=== PATIENT | male | born 1980 | race African-American/Black ===

== ENCOUNTER 2024-01-28 20:47 | Emergency (ER) | payer MEDICAID, SELFPAY ==
--- NOTE | 2024-01-28 | ECG_ITS ---
Test Reason : HYPERTENSION Blood Pressure : / mmHG Vent. Rate : 079 BPM Atrial Rate : 079 BPM P-R Int : 150 ms QRS Dur : 108 ms QT Int : 398 ms P-R-T Axes : 050 039 070 degrees QTc Int : 456 ms Normal sinus rhythm Nonspecific T wave abnormality Abnormal ECG No previous ECGs available Referred By: Charley Gamez Electronically Signed By:DANIELA CORTES MD
[2024-01-28 20:56] VITALS: BP 160/98; PULSE 72; O2SAT 98
[2024-01-28 20:58] VITALS: BMI 42.9
[2024-01-28 21:07] VITALS: BP 118/59; PULSE 89; RESP 18; TEMP 36.8; O2SAT 98
[2024-01-28 21:11] LABS: MANUAL DIFF FLAG NO
[2024-01-28 21:12] LABS: Basophils Absolute Auto 0.1 X10*3/uL (0.0-0.2); Basophils Percent Auto 0.6 % (0-2); Eosinophils Percent Auto 0.2 % (0-4); Hematocrit 45.4 % (42.0-52.0); Hemoglobin 15.7 g/dl (14.0-18.0); Imm Gran Abs Auto 0.02 X10*3/uL (0.00-0.03); Imm Gran Pct Auto 0.2 % (0.0-0.4); Lymphocytes Absolute Auto 3.4 X10*3/uL (1.2-4.9); Mean Corpuscular HGB Conc 34.6 g/dl (31.0-36.0); Mean Corpuscular Hemoglobin 28.3 pg (27.0-33.0); Mean Corpuscular Volume 81.9 fL (80.0-98.0); Mean Platelet Volume 9.8 fL (9.4-12.4); Monocytes Absolute Auto 0.4 X10*3/uL (0.1-1.2); Monocytes Percent Auto 4.8 % (2-11); Neutrophils Absolute Auto 4.6 x10*3/uL (2.0-8.3); Neutrophils Percent Auto 54.2 % (45-73); Platelet Count 276 X10*3/uL (160-400); Red Blood Count 5.54 X10*6/uL (4.60-5.80); Red Cell Distribution Width 12.3 % (11.0-16.0); White Blood Count 8.5 X10*3/uL (4.8-10.8)
[2024-01-28 21:22] LABS: Glucose, Whole Blood 575 mg/dL (60-115)
--- NOTE | 2024-01-28 21:24 | ED.PSYCH ---
HPI - Psych General Chief Complaint: Psychiatric Symptoms Stated Complaint: SI, high blood sugar Time Seen by Provider: 01/28/24 21:04 Source: patient and EMS Mode of arrival: EMS Limitations: no limitations History of Present Illness ED Provider: Dr. Charley Gamez HPI Narrative: Patient comes to the emergency room by ambulance. Earlier today, patient was feeling suicidal, states that he wanted to walk into traffic. Patient was accompanied by another person who was also going to follow him and walk into oncoming traffic. EMS noted that the patient's glucose is elevated. According to the patient, for several months almost 6 now, he has not taking any of his psych medications. Patient states that he is originally from the [facility], has been in [place] for almost 2 years, states that he does not have good follow-up with his providers. Has an appointment pending in February of this year. Patient states that he is supposed to be taking Jardiance, metformin and insulin glargine, but has been out for Several weeks. Patient denies any chest pain, shortness of breath, no headache or blurry vision. Patient complaining of feeling very thirsty and drinking a lot of good. Related Data Home Medications ?Medication ?Instructions ?Recorded ?Confirmed lisinopril 20 mg tablet 20 mg PO DAILY 01/28/24 01/28/24 metformin 1,000 mg tablet 1,000 mg PO BID 01/28/24 01/28/24 Allergies Allergy/AdvReac Type Severity Reaction Status Date / Time No Known Allergies Allergy Verified 01/28/24 21:01 Review of Systems Review of Systems: Constitutional : No Weight loss, No Fever, No Chills, No Night Sweats, No Fatigue, No Malaise ENT/Mouth : No Hearing loss, No Ear Pain, No Nasal Congestion, No Sinus Pain, No Hoarseness, No sore throat, No Rhinorrhea, No Swallowing Difficulty Eyes: No Eye Pain, No Swelling, No Redness, No Foreign Body, No Discharge, No Vision Changes Cardiovascular : No Chest Pain, No SOB, No Dyspnea on Exertion, No Orthopnea, No Edema, No Palpitations Respiratory : No Cough, No Sputum, No Wheezing, No Smoke Exposure, No Dyspnea Gastrointestinal : No Nausea, No Vomiting, No Diarrhea, No Constipation, No abdominal Pain, No Hematochezia, No Melena Genitourinary : no irregular bleeding, No Dysuria, No Urinary Frequency, No Hematuria, No Urinary Incontinence, No Urgency, No Flank Pain, No Urinary Flow Changes, No Hesitancy Musculoskeletal : No joint pain, No Myalgias, No Joint Swelling Skin : No Skin Lesions, No rash Neuro : No Weakness, No Numbness, No Paresthesias, No Loss of Consciousness, No Dizziness, No Headache Psych : No Anxiety/Panic, Complaining of depression, was considering walking into oncoming traffic Heme/Lymph: No Bruising, No Bleeding,No Lymphadenopathy Endocrine : playing of hyperglycemia, polyuria and polydipsia [facility] Past Medical History Medical History (Updated 01/28/24 @ 21:31 by Charley Gamez MD) Type 2 diabetes mellitus Social History Social History Smoked in Last 30 Days: Yes Use of substances other than those prescribed or required for medical reasons: Yes Substance Use Type: Marijuana Advance Directives: No Advance Directives Information Provided: Yes Do you have a plan to hurt others: No Plan Physical Exam Vital Signs: Vital Signs: Last Vital Signs Temp 98.2 F 01/28/24 21:07 Pulse 89 01/28/24 21:07 Resp 18 01/28/24 21:07 BP 118/59 L 01/28/24 21:07 Pulse Ox 98 01/28/24 21:07 O2 Del Method Room Air 01/28/24 21:07 BMI result Body Mass Index 42.9 Const: Other: Appearance: Alert. Oriented X3. No acute distress. Eyes: Pupils equal, round and reactive to light. ENT: Pharynx normal. dry oral mucosa Neck: Normal inspection. Neck supple. No lymph nodes noted. No crepitus CVS: Normal heart rate and rhythm. Pulses normal. Normal S1 and S2 Respiratory: No respiratory distress. Breath sounds normal. No Wheezing. No rales Abdomen: Soft and nontender. No rigidity. No distention. Skin: Skin warm and dry. Normal skin color. Normal skin turgor. Extremities: No lower extremity edema. No Lacerations. No Rash Neuro: Oriented X 3. No motor deficit. No sensory deficit. Moving all extremities. No slurred speech. CN 2 through 12 grossly intact Psych: calm, cooperative, normal affect Course Course Course Narrative: patient receiving IV fluids, insulin, we will recheck glucose all labs pending patient is on a Section 12 once medically clear, patient to be seen by the care team. Medications Administered Generic Name Dose Route Start Last Admin Trade Name Bonita PRN Reason Stop Dose Admin Sodium Chloride 2,000 mls @ 999 mls/hr 01/28/24 21:24 01/28/24 21:31 Ns IVCONT 01/28/24 23:24 999 mls/hr .Q2H1M ONE Administration Discontinued Medications Generic Name Dose Route Start Last Admin Trade Name Bonita PRN Reason Stop Dose Admin Insulin Human Regular 10 unit 01/28/24 21:24 01/28/24 21:32 Insulin Regular, Human 100 Unit/Ml 10 Ml Vial IVPUSH 01/28/24 21:25 10 unit ONCE ONE Administration Medical Decision Making Medical Decision Making [facility] Narrative: My interpretation of labs: Normal hematology, normal venous gases, no acute abnormality in chemistry other than the elevated glucose of 538. Anion gap closed, read hydroxybutyrate within normal limits. Normal LFTs. - After 2 L of normal saline and 10 units of insulin, patient's glucose 299. Urinalysis negative for UTI, U tox positive for THC - patient is on a Section 12 - care team consult pending Differential Diagnosis Differential Diagnoses: The differential diagnosis associated with the presentation includes ( Anxiety, depression, polysubstance abuse, diabetes, DKA) Admission/Observation Consideration of admission/observation: Escalation of care including admission/observation considered ( given patient's presentation observation to the medical floor /admission has been considered. Patient is on a Section 12 waiting to be seen by the care team.) Lab Data [facility] Lab Attestation statement: I reviewed the patient's lab results. 01/28/24 21:08 01/28/24 21:08 Labs: Lab Results 01/28/24 01/28/24 01/28/24 Range/Units 21:08 21:11 21:20 WBC 8.5 (4.8-10.8) X10*3/uL RBC 5.54 (4.60-5.80) X10*6/uL Hgb 15.7 (14.0-18.0) g/dl Hct 45.4 (42.0-52.0) % MCV 81.9 (80.0-98.0) fL MCH 28.3 (27.0-33.0) pg MCHC 34.6 (31.0-36.0) g/dl RDW 12.3 (11.0-16.0) % Plt Count 276 (160-400) X10*3/uL MPV 9.8 (9.4-12.4) fL Immature Gran % (Auto) 0.2 (0.0-0.4) % Neut % (Auto) 54.2 (45-73) % Lymph % (Auto) 40.0 (20-40) % [place] % (Auto) 4.8 (2-11) % Eos % (Auto) 0.2 (0-4) % Baso % (Auto) 0.6 (0-2) % Lymph # (Auto) 3.4 (1.2-4.9) X10*3/uL [place] # (Auto) 0.4 (0.1-1.2) X10*3/uL Eos # (Auto) 0.0 (0.0-0.4) X10*3/uL Baso # (Auto) 0.1 (0.0-0.2) X10*3/uL Abs Immat Gran (auto) 0.02 (0.00-0.03) X10*3/uL Absolute Neuts (auto) 4.6 (2.0-8.3) x10*3/uL Absolute Nucleated RBC 0.000 (0.0-0.012) X10*3/uL Nucleated RBC % (auto) 0.0 (0.0-0.2) /100WBC VBG pH (7.32-7.43) VBG pCO2 mmHg VBG pO2 mmHg VBG HCO3 (22-26) mmol/L VBG O2 Saturation % VBG Base Excess mmol/L Sodium 134 L (135-145) mmol/L Potassium 4.1 (3.3-5.1) mmol/L Chloride 99 (96-108) mmol/L Carbon Dioxide 26 (22-29) mmol/L Anion Gap 13 (12-20) BUN 14 (9-16) mg/dL Creatinine 0.87 (0.5-1.4) mg/dL Estim Creat Clear Calc 142.8 Estimated GFR > 60 POC Glucose 575 H* (60-115) mg/dL Random Glucose 538 H* (60-115) mg/dL Calcium 9.8 (8.4-10.2) mg/dL Total Bilirubin 0.5 (0.0-1.0) mg/dL AST 24 (5-37) U/L ALT 25 (0-40) U/L Alkaline Phosphatase 195 H (39-117) U/L Total Protein 8.0 (6.5-8.0) g/dL Albumin 4.1 (3.5-5.0) g/dL Beta-Hydroxybutyrate (0.02-0.27) mmol/L Urine Color Urine Appearance Urine pH (5.0-9.0) Ur Specific [place] (1.005-1.025) Urine Protein (Neg-Trace) mg/dL Urine Glucose (UA) (Negative) mg/dL Urine Ketones (Negative) mg/dL Urine Blood (Negative) Urine Nitrite (Negative) Ur Leukocyte Esterase (Negative) Urine RBC (0-2) /HPF Urine WBC (0-5) /HPF Ur Squamous Epith Cells (0-2) /HPF Urine Bacteria (None Seen) Hyaline Casts (0-2) /LPF Salicylates < 5.0 L (15-30) mg/dL Urine Opiates Screen (Not Detect) Ur Buprenorphine Scrn (Not Detect) ng/mL Ur Oxycodone Screen (Not Detect) ng/mL Urine Methadone Screen (Not Detect) ng/mL Urine Fentanyl Screen (Not Detect) Acetaminophen < 3 (<30) mcg/mL Ur Barbiturates Screen (Not Detect) Ur Phencyclidine Scrn (Not Detect) Ur Amphetamines Screen (Not Detect) U Benzodiazepines Scrn (Not Detect) Urine Cocaine Screen (Not Detect) U Marijuana (THC) Screen (Not Detect) Ethyl Alcohol < 10 mg/dL 01/28/24 01/28/24 01/28/24 Range/Units 21:21 21:26 21:42 WBC (4.8-10.8) X10*3/uL RBC (4.60-5.80) X10*6/uL Hgb (14.0-18.0) g/dl Hct (42.0-52.0) % MCV (80.0-98.0) fL MCH (27.0-33.0) pg MCHC (31.0-36.0) g/dl RDW (11.0-16.0) % Plt Count (160-400) X10*3/uL MPV (9.4-12.4) fL Immature Gran % (Auto) (0.0-0.4) % Neut % (Auto) (45-73) % Lymph % (Auto) (20-40) % [place] % (Auto) (2-11) % Eos % (Auto) (0-4) % Baso % (Auto) (0-2) % Lymph # (Auto) (1.2-4.9) X10*3/uL [place] # (Auto) (0.1-1.2) X10*3/uL Eos # (Auto) (0.0-0.4) X10*3/uL Baso # (Auto) (0.0-0.2) X10*3/uL Abs Immat Gran (auto) (0.00-0.03) X10*3/uL Absolute Neuts (auto) (2.0-8.3) x10*3/uL Absolute Nucleated RBC (0.0-0.012) X10*3/uL Nucleated RBC % (auto) (0.0-0.2) /100WBC VBG pH 7.44 H (7.32-7.43) VBG pCO2 36 mmHg VBG pO2 63 mmHg VBG HCO3 25 (22-26) mmol/L VBG O2 Saturation 91.0 % VBG Base Excess 1.4 mmol/L Sodium (135-145) mmol/L Potassium (3.3-5.1) mmol/L Chloride (96-108) mmol/L Carbon Dioxide (22-29) mmol/L Anion Gap (12-20) BUN (9-16) mg/dL Creatinine (0.5-1.4) mg/dL Estim Creat Clear Calc Estimated GFR POC Glucose (60-115) mg/dL Random Glucose (60-115) mg/dL Calcium (8.4-10.2) mg/dL Total Bilirubin (0.0-1.0) mg/dL AST (5-37) U/L ALT (0-40) U/L Alkaline Phosphatase (39-117) U/L Total Protein (6.5-8.0) g/dL Albumin (3.5-5.0) g/dL Beta-Hydroxybutyrate 0.24 (0.02-0.27) mmol/L Urine Color Yellow Urine Appearance Clear Urine pH 5.0 (5.0-9.0) Ur Specific [place] >= 1.030 H (1.005-1.025) Urine Protein Negative (Neg-Trace) mg/dL Urine Glucose (UA) >=1000 H (Negative) mg/dL Urine Ketones Negative (Negative) mg/dL Urine Blood Negative (Negative) Urine Nitrite Negative (Negative) Ur Leukocyte Esterase Negative (Negative) Urine RBC 0-2 (0-2) /HPF Urine WBC 0-5 (0-5) /HPF Ur Squamous Epith Cells 0-2 (0-2) /HPF Urine Bacteria None Seen (None Seen) Hyaline Casts 0-2 (0-2) /LPF Salicylates (15-30) mg/dL Urine Opiates Screen Not Detected (Not Detect) Ur Buprenorphine Scrn Not Detected (Not Detect) ng/mL Ur Oxycodone Screen Not Detected (Not Detect) ng/mL Urine Methadone Screen Not Detected (Not Detect) ng/mL Urine Fentanyl Screen Not Detected (Not Detect) Acetaminophen (<30) mcg/mL Ur Barbiturates Screen Not Detected (Not Detect) Ur Phencyclidine Scrn Not Detected (Not Detect) Ur Amphetamines Screen Not Detected (Not Detect) U Benzodiazepines Scrn Not Detected (Not Detect) Urine Cocaine Screen Not Detected (Not Detect) U Marijuana (THC) Screen POSITIVE H (Not Detect) Ethyl Alcohol mg/dL 01/28/24 Range/Units 23:03 WBC (4.8-10.8) X10*3/uL RBC (4.60-5.80) X10*6/uL Hgb (14.0-18.0) g/dl Hct (42.0-52.0) % MCV (80.0-98.0) fL MCH (27.0-33.0) pg MCHC (31.0-36.0) g/dl RDW (11.0-16.0) % Plt Count (160-400) X10*3/uL MPV (9.4-12.4) fL Immature Gran % (Auto) (0.0-0.4) % Neut % (Auto) (45-73) % Lymph % (Auto) (20-40) % [place] % (Auto) (2-11) % Eos % (Auto) (0-4) % Baso % (Auto) (0-2) % Lymph # (Auto) (1.2-4.9) X10*3/uL [place] # (Auto) (0.1-1.2) X10*3/uL Eos # (Auto) (0.0-0.4) X10*3/uL Baso # (Auto) (0.0-0.2) X10*3/uL Abs Immat Gran (auto) (0.00-0.03) X10*3/uL Absolute Neuts (auto) (2.0-8.3) x10*3/uL Absolute Nucleated RBC (0.0-0.012) X10*3/uL Nucleated RBC % (auto) (0.0-0.2) /100WBC VBG pH (7.32-7.43) VBG pCO2 mmHg VBG pO2 mmHg VBG HCO3 (22-26) mmol/L VBG O2 Saturation % VBG Base Excess mmol/L Sodium (135-145) mmol/L Potassium (3.3-5.1) mmol/L Chloride (96-108) mmol/L Carbon Dioxide (22-29) mmol/L Anion Gap (12-20) BUN (9-16) mg/dL Creatinine (0.5-1.4) mg/dL Estim Creat Clear Calc Estimated GFR POC Glucose 299 H (60-115) mg/dL Random Glucose (60-115) mg/dL Calcium (8.4-10.2) mg/dL Total Bilirubin (0.0-1.0) mg/dL AST (5-37) U/L ALT (0-40) U/L Alkaline Phosphatase (39-117) U/L Total Protein (6.5-8.0) g/dL Albumin (3.5-5.0) g/dL Beta-Hydroxybutyrate (0.02-0.27) mmol/L Urine Color Urine Appearance Urine pH (5.0-9.0) Ur Specific [place] (1.005-1.025) Urine Protein (Neg-Trace) mg/dL Urine Glucose (UA) (Negative) mg/dL Urine Ketones (Negative) mg/dL Urine Blood (Negative) Urine Nitrite (Negative) Ur Leukocyte Esterase (Negative) Urine RBC (0-2) /HPF Urine WBC (0-5) /HPF Ur Squamous Epith Cells (0-2) /HPF Urine Bacteria (None Seen) Hyaline Casts (0-2) /LPF Salicylates (15-30) mg/dL Urine Opiates Screen (Not Detect) Ur Buprenorphine Scrn (Not Detect) ng/mL Ur Oxycodone Screen (Not Detect) ng/mL Urine Methadone Screen (Not Detect) ng/mL Urine Fentanyl Screen (Not Detect) Acetaminophen (<30) mcg/mL Ur Barbiturates Screen (Not Detect) Ur Phencyclidine Scrn (Not Detect) Ur Amphetamines Screen (Not Detect) U Benzodiazepines Scrn (Not Detect) Urine Cocaine Screen (Not Detect) U Marijuana (THC) Screen (Not Detect) Ethyl Alcohol mg/dL Critical Care Time Critical Care Time Critical Care Time: Yes Total Critical Care Time: 45 Attestation: I have personally provided critical care time. Time includes review of lab data, radiology results, discussion with consultants, and monitoring for potential decompensation. Intervention performed as documented. Discharge Plan Discharge Clinical Impression: Acute hyperglycemia, Suicide ideation Patient Disposition: Still a Patient Prescriptions: No Action lisinopril 20 mg tablet 20 mg PO DAILY metformin 1,000 mg tablet 1,000 mg PO BID Interventions: [place]-Suicide Risk Severity Scale Last Done: 01/28/24 22:02 Print Language: Danish
[2024-01-28 21:30] LABS: Venous Blood Gas Refer to POC result
[2024-01-28 21:31] LABS: VBG Base Excess 1.4 mmol/L; VBG HCO3 25 mmol/L (22-26); VBG pCO2 36 mmHg; VBG pH 7.44 (7.32-7.43); VBG pO2 63 mmHg
[2024-01-28] MEDS: 0.9 % Sodium Chloride 2,000 ML 999 ML IVCONT (21:31)
[2024-01-28] MEDS: Insulin Regular, Human 100 UNIT/ML 10 ML VIAL 10 UNIT IVPUSH (21:32)
[2024-01-28 21:36] LABS: Acetaminophen LAB < 3 mcg/mL (<30); Salicylate < 5.0 mg/dL (15-30)
[2024-01-28 21:41] LABS: Beta-Hydroxybutyrate 0.24 mmol/L (0.02-0.27)
[2024-01-28 21:45] LABS: Alanine Aminotransferase 25 U/L (0-40); Albumin Level 4.1 g/dL (3.5-5.0); Alkaline Phosphatase 195 U/L (39-117); Anion Gap 13 (12-20); Aspartate Amino Transferase 24 U/L (5-37); Bilirubin Total 0.5 mg/dL (0.0-1.0); Blood Urea Nitrogen 14 mg/dL (9-16); Calcium 9.8 mg/dL (8.4-10.2); Carbon Dioxide 26 mmol/L (22-29); Chloride 99 mmol/L (96-108); Creatinine Clr Calc Pharmacy 142.8; Estimated Glomerular Filt Rate > 60; Ethanol < 10 mg/dL; Glucose Random 538 mg/dL (60-115); Potassium 4.1 mmol/L (3.3-5.1); Sodium 134 mmol/L (135-145)
[2024-01-28 21:49] LABS: Appearance Urine Clear; Color Urine Yellow; Glucose Urine UA >=1000 mg/dL (Negative); Leukocyte Esterase Urine Negative (Negative); Nitrite Urine Negative (Negative); Specific Gravity - Urine >= 1.030 (1.005-1.025); UMIC TRIGGER UACC YES; Urine Blood Negative (Negative); Urine Ketones Negative (Negative); Urine Protein Negative (Neg-Trace)
[2024-01-28 21:51] LABS: Bacteria Urine None Seen (None Seen); Hyaline Casts Urine 0-2 /LPF (0-2); RBC Urine 0-2 /HPF (0-2); Squamous Epithelial Cell Urine 0-2 /HPF (0-2); WBC Urine 0-5 /HPF (0-5)
[2024-01-28 21:57] LABS: Amphetamine Screen Urine Not Detected (Not Detect); Barbiturates, Urine Not Detected (Not Detect); Benzodiazepines Screen Urine Not Detected (Not Detect); Buprenorphine Scr Not Detected (Not Detect); Cannabinoid Screen Urine POSITIVE (Not Detect); Cocaine Screen Urine Not Detected (Not Detect); Fentanyl, urine Not Detected (Not Detect); Methadone Screen, Urine Not Detected (Not Detect); Opiate Screen Urine Not Detected (Not Detect); Oxycodone Screen Urine Not Detected (Not Detect); Phencyclidine Screen Urine Not Detected (Not Detect)
[2024-01-28 23:07] LABS: Glucose, Whole Blood 299 mg/dL (60-115)
[2024-01-29 02:27] VITALS: BP 128/71; PULSE 78; RESP 16; TEMP 36.3; O2SAT 95
[2024-01-29 06:00] VITALS: BP 140/65; PULSE 81; RESP 16; TEMP 36.6; O2SAT 97
[2024-01-29 06:28] LABS: Glucose, Whole Blood 313 mg/dL (60-115)
--- NOTE | 2024-01-29 06:57 | PC.NURSE ---
report given to Lauren PAVON
--- NOTE | 2024-01-29 07:17 | PC.NURSE ---
med rec done by previous RN, this RN altered MD to order meds and BGL in 300s
--- NOTE | 2024-01-29 07:38 | MHC.EDTECH ---
Breakfast given to patient on a safety tray. Sitter present for patient safety.
[2024-01-29 07:40] LABS: Glucose, Whole Blood 293 mg/dL (60-115)
[2024-01-29] MEDS: Insulin Lispro 100 UNIT/ML 3 ML VIAL SUBCUT ×4 (07:41→21:00)
--- NOTE | 2024-01-29 07:48 | MHC.EDTECH ---
Patient ate 100% of breakfast.
--- NOTE | 2024-01-29 07:52 | MHC.EDTECH ---
Patient ambulated with sitter to the bathroom. Patient ambulated back to bed with sitter. Patient resting, states he is comfortable. Sitter present for patient safety.
[2024-01-29] MEDS: metFORMIN HCl 1,000 MG TABLET 1000 MG PO ×2 (08:23→20:59)
[2024-01-29 08:24] VITALS: BP 161/85
[2024-01-29] MEDS: lisinopriL 20 MG TABLET PO (08:24)
--- NOTE | 2024-01-29 08:41 | PC.NURSE ---
Pt awake, alert and oriented, very pleasant. Breathing even and unlabored, skin warm and dry. Denies any pain. 1:1 sitter at bedside. Took his morning meds and ate breakfast with no issues.
[2024-01-29 11:37] VITALS: BP 140/82; PULSE 83; RESP 18; TEMP 36.4; O2SAT 97
[2024-01-29 13:03] LABS: Glucose, Whole Blood 218 mg/dL (60-115)
[2024-01-29 15:25] VITALS: BP 154/95; PULSE 64; RESP 16; TEMP 36.8; O2SAT 98
--- NOTE | 2024-01-29 18:02 | MHC.CARE ---
Patient evaluated by the CARE team, disposition [facility] bed search. ED provider Dr. Diaz updated.
[2024-01-29 18:18] LABS: Glucose, Whole Blood 315 mg/dL (60-115)
[2024-01-29 20:43] LABS: Glucose, Whole Blood 259 mg/dL (60-115)
[2024-01-29] MEDS: Insulin Glargine,Hum.rec.anlog 100 UNIT/ML 10 ML VIAL 45 UNIT SUBCUT (20:59)
[2024-01-29 21:46] VITALS: BP 120/62; PULSE 77; RESP 16; TEMP 37.3; O2SAT 94
[2024-01-30 07:27] LABS: Glucose, Whole Blood 272 mg/dL (60-115)
--- NOTE | 2024-01-30 07:48 | PC.NURSE ---
Assumed care of patient at 0645, patient appears to be in no apparent distress this am, appears to be sleeping, respirations even and unlabored. Continue plan of care for respite bedsearch
[2024-01-30] MEDS: metFORMIN HCl 1,000 MG TABLET 1000 MG PO (08:24)
[2024-01-30] MEDS: lisinopriL 20 MG TABLET PO (08:24)
[2024-01-30 10:10] VITALS: BP 120/62; PULSE 77; RESP 16; TEMP 37.3; O2SAT 94
--- NOTE | 2024-01-30 11:02 | MHC.CARE ---
Patient requested discharge and was reevaluated by the CARE Team and cleared to leave. [facility] has his information and patient can follow up from the community if still interested. ED provider, EDVIN Hernandez
== END 2024-01-30 10:19 | disposition home or self-care (01) ==
PROVIDERS: Emergency Medicine; Emergency Provider Emergency Medicine Emergency Medical Services
DX: E11.65 Type 2 diabetes mellitus with hyperglycemia (principal); R45.851 Suicidal ideations; R94.31 Abnormal electrocardiogram [ECG] [EKG]; F12.90 Cannabis use, unspecified, uncomplicated; Z79.899 Other long term (current) drug therapy; Z51.81 Encounter for therapeutic drug level monitoring; Z79.84 Long term (current) use of oral hypoglycemic drugs
CPT/HCPCS: 36415; 80053; 80143; 80179; 80307; 81001; 82010; 82803; 82947; 85025; 93005; 96361; 96372; 96374; 99285; S9485

== ENCOUNTER → 2024-01-28 21:37 | Outpatient (BNV) | payer MEDICAID, SELFPAY | PROVIDERS: Emergency Provider Emergency Medicine Emergency Medical Services; Visit Provider Internal Medicine Cardiovascular Disease | DX: R94.31 Abnormal electrocardiogram [ECG] [EKG] (principal); I10 Essential (primary) hypertension | CPT/HCPCS: 93010 ==